=== PATIENT | male | born 1985 | race Caucasian/White ===

== ENCOUNTER 2025-03-07 13:28 | Emergency (ER) | payer OTHER, SELFPAY ==
--- OUTSIDE RECORDS SUMMARY | 2024-02-18 06:15 | XMS_ITS ---
Author Organization [facility] Address [address] [place] [address] Care Team Providers Care Supervisor Cloth Winding Name Role Phone Dr. Linda Simon Primary Care Provider [phone] Darcy Blair Unavailable [phone] Results Component Value Reference Range Notes CBC w/ Diff Reviewed date:02/21/2024 12:00:00 AM Interpretation: Performing Lab: Notes/Report: Basophil Auto 0.4 % Eos Absolute 0.1 x10*3/mcL Eosinophil Auto 0.7 % Hct 42.3 % Hgb 14.6 g/dL Lymph Absolute 2.5 x10*3/mcL Lymph Auto 32.2 % MCH 30.3 pg MCHC 34.6 g/dL MCV 87.6 fL [place] Absolute 0.6 x10*3/mcL [place] Auto 7.5 % MPV 8.1 fL Neutro Absolute 4.6 x10*3/mcL Neutro Auto 59.2 % Platelets 380 K/mcL RBC 4.83 x10*6/mcL RDW 13.0 % WBC 7.8 K/mcL Comprehensive Metabolic Pane l Reviewed date:02/21/2024 12:00:00 AM Interpretation: Performing Lab: Notes/Report: Albumin Lvl 4.6 g/dL Albumin/Globulin Ratio 1.8 Alk Phos 75 unit/L ALT 38 unit/L ANION GAP 9.1 mmol/L AST 20 unit/L Bilirubin Total 0.5 mg/dL BUN 18 mg/dL Calcium Lvl 9.7 mg/dL Chloride Lvl 103 mmol/L CO2 27 mmol/L Creatinine Lvl 1.04 mg/dL eGFR CKD-EPI >90 mL/min/1.73 m2 Glucose Lvl 89 mg/dL Potassium Lvl 4.2 mmol/L Protein Total 7.2 g/dL Sodium Lvl 139 mmol/L Hemoglobin A1c {Glycosylated } Reviewed date:02/21/2024 12:00:00 AM Interpretation: Performing Lab: Notes/Report: eAvg Glucose 108 mg/dL Hemoglobin A1c 5.4 % Lipid Panel {Chol, Trig, HDL , LDL} Reviewed date:02/21/2024 12:00:00 AM Interpretation: Performing Lab: Notes/Report: Chol/HDL 4 Cholesterol Total 167 mg/dL Coronary Risk 25 % HDL 42 mg/dL LDL 101 mg/dL NON HDL CHOLESTEROL 125 mg/dL Triglycerides 120 mg/dL T4 Free Reviewed date:02/21/2024 12:00:00 AM Interpretation: Performing Lab: Notes/Report: T4 Free 1.08 ng/dL Thyroid Stimulating Hormone Reviewed date:02/21/2024 12:00:00 AM Interpretation: Performing Lab: Notes/Report: TSH 2.70 mcIU/mL Vitamin B12 Reviewed date:02/21/2024 12:00:00 AM Interpretation: Performing Lab: Notes/Report: Vitamin B12 Lvl 504 pg/mL Vitamin D 25 Hydroxy Reviewed date:02/21/2024 12:00:00 AM Interpretation: Performing Lab: Notes/Report: Vitamin D 25 OH 40 ng/mL REASON FOR VISIT Med Check Vital Signs Temperature 97.6 degrees Fahrenheit 02/18/20 24 Blood pressure systolic 142 mm Hg 02/18/20 24 Blood pressure diastolic 78 mm Hg 024 Heart Rate 72 /min 02/18/2024 Respiratory Rate 18 /min 02/18/2024 Weight 271.61 lbs 02/18/2024 Oximetry 98 % 02/18/2024 Weight-kg 123.20 kg 02/18/2024 Encounters Encounter Location Date Provider Diagnosis [address] [address] 02/18/2024 Darcy Blair Abnormal levels of other serum enzymes R74.8 ; Essential (primary) hypertension I10 ; Anxiety disorder, unspecified F41.9 and Encounter for general adult medical examination without abnormal findings Z00.00 Assessments Encounter Date Diagnosis (ICD Code) Assessment Notes Treatment Notes Treatment Clinical Notes Section Notes 02/18/2024 Abnormal levels of other serum enzymes (ICD-10 - R74.8) 02/18/2024 Essential (primary) hypertension (ICD-10 - I10) 02/18/2024 Anxiety disorder, unspecified (ICD-10 - F41.9) 02/18/2024 Encounter for general adult medical examination without abnormal findings (ICD-10 - Z00.00) Plan Of Treatment Next Appt Details Provider Name:Linda Chowdhury er, 04/13/2025 08:45:00 AM, [address], [place], [address], [phone] Progress Notes * Brooks SOTODOB:1985 ( 39 yo M)Acc No.[id number]:02/18/2024 Patient: Brooks Gasca Provider: Tracy Blair NP :1985 A ge:38 Y S ex:Male Date:02/18/2024 Phone: Address:[address] [facility] Pcp:Dr. Linda Simon Subjective: * Chief Complaints: * M ed Check Objective: * Vitals: B P: 142/78 mm Hg, HR: 72 /min, RR: 18 /min, Temp: 97.6 F, Oxygen sat %: 98 %, Wt: 271.61 lbs, Wt-k.20 kg, BP2: 132/86. Past Vitals:* 08/24/2022 BP: 144/88 mm Hg, HR: 86 /mi n, Oxygen sat %: 96 %, Wt: 267.99 lbs, Wt-k.56 kg * 05/01/2022 BP: 172/98 mm Hg, HR: 81 /mi n, Oxygen sat %: 98 %, Wt: 267.00 lbs, Wt-k.11 kg Assessment: * Assessment: 1. A nxiety disorder, unspecified - F41.9 S pecify :Src Diagnosis Name: Anxiety 2 . E ssential (primary) hypertension - I10 3 . A bnormal levels of other serum enzymes - R74.8 S pecify :Src Diagnosis Name: Elevated liver enzymes 4 . E ncounter for general adult medical examination without abnormal findings - Z00.00 S pecify :Src Diagnosis Name: Encounter for wellness examination Plan: * Labs: * L ab: Thyroid Stimulating Hormone Value Reference Range T SH 2.70 mcIU/mL ?Lab: Lipid Panel {Chol, Trig, HDL, LDL}* Value Reference Range C hol/HDL 4 * C holesterol Total 167 mg/dL * C oronary Risk 25 % * H DL 42 mg/dL * L DL 101 mg/dL * N ON HDL CHOLESTEROL 125 mg/dL * T riglycerides 120 mg/dL * Coronary Risk: _ C oronary Risk Factor - Male D angerous Risk: <7 % H igh Risk: 7-15 % A verage Risk: 15-25 % B elow Average Risk: 25-37 % _ C oronary Risk Factor - Female Dangerous Risk: <12 % H igh Risk: 12-18 % A verage Risk: 18-27 % B elow Average Risk: 27-40 % _ LDL: _ L DL O ptimal: <100 N ear or above optimal: 100-129 B orderline high: 130-159 H igh: 160-189 V jimmy high: >=190 _ C oronary heart disease risk factors should be considered w hen determining LDL goals. Please refer to A TPIII guidelines for further information. _ I f LDL is not calculated, please call the lab to add on the direct LDL m ethodology, if desired. _ T riglycerides: _ T riglyceride Reference Ranges: < 150 mg/dL Normal 1 50 - 199 mg/dL Borderline High 2 00 - 499 mg/dL High > =500 mg/dL Very High _ ?Lab: Hemoglobin A1c {Glycosylated}* Value Reference Range e Avg Glucose 108 mg/dL * H emoglobin A1c 5.4 % * Hemoglobin A1c: _ H emoglobin A1C < 5.7% = Normal 5 .7-6.4% = Increased risk for future diabetes > =6.5% = Diabetes _ eAvg Glucose: _ e AG Reference Range < 117 mg/dL = Normal 1 17-137 mg/dL = Increased Risk For Future Diabetes > 137 mg/dL = Diabetes _ T est Performed by: [facility] [address], [address] [place] [id number] P dada : ?Lab: CBC w/ Diff* Value Reference Range B asophil Auto 0.4 % * E os Absolute 0.1 x10*3/mcL * E osinophil Auto 0.7 % * H ct 42.3 % * H gb 14.6 g/dL * L ymph Absolute 2.5 x10*3/mcL * L ymph Auto 32.2 % * M CH 30.3 pg * M CHC 34.6 g/dL * M CV 87.6 fL * M ector Absolute 0.6 x10*3/mcL * M ector Auto 7.5 % * M PV 8.1 fL * N eutro Absolute 4.6 x10*3/mcL * N eutro Auto 59.2 % * P latelets 380 K/mcL * R BC 4.83 x10*6/mcL * R DW 13.0 % * W BC 7.8 K/mcL ?Lab: Vitamin D 25 Hydroxy* Value Reference Range V itamin D 25 OH 40 ng/mL * Vitamin D 25 OH: _ V itamin D25 Interpretation: D eficient: <= 20 ng/mL I nsufficient: 21-29 ng/mL S ufficient: 30-100 ng/mL U pper Safety Limit: >100 ng/mL _ ?Lab: T4 Free* Value Reference Range T 4 Free 1.08 ng/dL ?Lab: Vitamin B12* Value Reference Range V itamin B12 Lvl 504 pg/mL * Vitamin B12 Lvl: _ V itamin B12 Interpretation: N ormal Range: 180-914 pg/mL I ndeterminate: 140-180 pg/mL D eficient: <140 pg/mL _ ?Lab: Comprehensive Metabolic Panel* Value Reference Range A lbumin Lvl 4.6 g/dL * A lbumin/Globulin Ratio 1.8 * A lk Phos 75 unit/L * A LT 38 unit/L * A NION GAP 9.1 mmol/L * A ST 20 unit/L * B ilirubin Total 0.5 mg/dL * B UN 18 mg/dL * C alcium Lvl 9.7 mg/dL * C hloride Lvl 103 mmol/L * C O2 27 mmol/L * C reatinine Lvl 1.04 mg/dL * e GFR CKD-EPI >90 mL/min/1.73 m2 * G lucose Lvl 89 mg/dL * P otassium Lvl 4.2 mmol/L * P rotein Total 7.2 g/dL * S odium Lvl 139 mmol/L * eGFR CKD-EPI: _ T he CKD-EPI equation is validated in individuals 18 years of age and older. It i s less accurate in patients with extremes of muscle mass, restriction of d ietary protein, ingestion of creatine, extra-renal metabolism of creatinine, or t reatment with medications that affect renal tubular creatinine secretion. _ G FR Categories in Chronic Kidney Disease (CKD) _ G FR GFR (mL/min/1.73 C ategory: square meters): Interpretation: _ G 1 90 or greater Normal or high* G 2 60-89 Mild decrease* G 3a 45-59 Mild to moderate decrease G 3b 30-44 Moderate to severe decrease G 4 15-29 Severe decrease G 5 14 or less Kidney failure _ _ * In the absence of evidence of kidney damage, neither GFR c ategory G1 nor G2 fulfill the criteria for CKD (Kidney Int Suppl 2013;3:1-150) _ Glucose Lvl: _ A DA risk stratification for diabetes < 100 mg/dL = Normal 1 00-125 mg/dL = Increased risk for future diabetes > =126 mg/dL = Diabetes, if on more than one testing occasion _ * Electronic signature of Carlos Blair on 03/07/2025 at 02:20 PM CDT Sign off status: Pending * Provider: Tracy Blair NP Date: 0 02/18/2024 Generated for Mckayla bruce/Carrie/Dina on: 1 02:20 PM CDT
--- OUTSIDE RECORDS SUMMARY | 2024-05-03 04:00 | XMS_ITS ---
Author Organization [facility] Address [address] [place] [id number] Care Team Providers Care Data Processing Mechanic Name Role Phone Dr. Linda Simon Primary Care Provider [phone] Migration, Provider Unavailable Unavailable REASON FOR VISIT EMR-Tahir Encounters Encounter Location Date Provider Diagnosis [facility] [address] [place] [address] 05/03/2024 Provider Migration Plan Of Treatment Medication Medication Name Sig Start Date Stop Date Notes Vitamin D2 50 MCG (1999) Tablet Oral; Duration: 0 08/25/2022 02/17/2024 ,discontinuere ason:D iscontinued Losartan Potassium-HCTZ 100-25 MG Tablet 1 Oral every day; Duration: 10/01/2023 02/17/2024 ,discontinuereason:D iscontinued Metoprolol Succinate ER 50 MG Tablet Extended Release 24 Hour 1 Oral every day; Duration: 08/30/2023 09/28/2023 ,discontinuereason:R efilled Metoprolol Succinate ER 25 MG Tablet Extended Release 24 Hour 1 Oral every day; Duration: 02/21/2021 04/11/2021 ,discontinuereason:R x Change Sertraline HCl 50 MG Tablet 1 Oral every day; Duration: 07/30/2023 10/27/2023 ,discontinuereason:R efilled Lisinopril-hydroCHLOROth iazide 20-25 MG Tablet 1 Oral every day; Duration: 02/20/2022 04/30/2022 ,discontinuereason:D iscontinued Next Appt Details Provider Name:Linda Chowdhury er, 04/13/2025 08:45:00 AM, [address] [employer] [facility], [place], [address], [phone] Progress Notes * Brooks SOTODOB:1985 ( 39 yo M)Acc No.[id number]:05/03/2024 Patient: Brooks OLIVA :1985 A ge:39 Y S ex:Male Phone: Address:[address] [place] [address], [phone] * Refills Stop Losartan Potassium-HCTZ Tablet, 100-25 MG, Oral, 30, 1, every day, 30 Stop Sertraline HCl Tablet, 50 MG, Oral, 90, 1, every day, 90 Stop Metoprolol Succinate ER Tablet Extended Release 24 Hour, 50 MG, Oral, 90, 1, every day, 90 Stop Losartan Potassium-HCTZ Tablet, 100-25 MG, Oral, 30, 1, every day, 30 Stop Sertraline HCl Tablet, 50 MG, Oral, 30, 1, every day, 30 Stop Losartan Potassium-HCTZ Tablet, 100-25 MG, Oral, 30, 1, every day, 30 Stop Losartan Potassium-HCTZ Tablet, 100-25 MG, Oral, 30, 1, every day, 30 Stop Sertraline HCl Tablet, 50 MG, Oral, 90, 1, every day, 90 Stop Sertraline HCl Tablet, 50 MG, Oral, 90, 1, every day, 90 Stop Metoprolol Succinate ER Tablet Extended Release 24 Hour, 50 MG, Oral, 30, 1, every day, 30 Stop Lisinopril-hydroCHLOROthiazide Tablet, 20-25 MG, Oral, 90, 1, every day, 90 Stop Losartan Potassium-HCTZ Tablet, 100-25 MG, Oral, 90, 1, every day, 90 Stop Losartan Potassium-HCTZ Tablet, 100-25 MG, Oral, 30, 1, every day, 30 Stop Metoprolol Succinate ER Tablet Extended Release 24 Hour, 50 MG, Oral, 30, 1, every day, 30 Stop Lisinopril-hydroCHLOROthiazide Tablet, 20-25 MG, Oral, 30, 1, every day, 30 Stop Lisinopril-hydroCHLOROthiazide Tablet, 20-25 MG, Oral, 90, 1, every day, 90 Stop Losartan Potassium-HCTZ Tablet, 100-25 MG, Oral, 90, 1, every day, 90 Stop Sertraline HCl Tablet, 50 MG, Oral, 90, 1, every day, 90 Stop Sertraline HCl Tablet, 50 MG, Oral, 90, 1, every day, 90 Stop Sertraline HCl Tablet, 50 MG, Oral, 90, 1, every day, 90 Stop Metoprolol Succinate ER Tablet Extended Release 24 Hour, 50 MG, Oral, 90, 1, every day, 90 Stop Lisinopril-hydroCHLOROthiazide Tablet, 20-25 MG, Oral, 90, 1, every day, 90 Stop Sertraline HCl Tablet, 50 MG, Oral, 30, 1, every day, 30 Stop Losartan Potassium-HCTZ Tablet, 100-25 MG, Oral, 30, 1, every day, 30 Stop Losartan Potassium-HCTZ Tablet, 100-25 MG, Oral, 90, 1, every day, 90 Stop Metoprolol Succinate ER Tablet Extended Release 24 Hour, 50 MG, Oral, 90, 1, every day, 90 Stop Losartan Potassium-HCTZ Tablet, 100-25 MG, Oral, 30, 1, every day, 30 Stop Sertraline HCl Tablet, 50 MG, Oral, 30, 1, every day, 30 Stop Sertraline HCl Tablet, 50 MG, Oral, 90, 1, every day, 90 Stop Metoprolol Succinate ER Tablet Extended Release 24 Hour, 50 MG, Oral, 90, 1, every day, 90 Stop Metoprolol Succinate ER Tablet Extended Release 24 Hour, 50 MG, Oral, 30, 1, every day, 30 Stop Sertraline HCl Tablet, 50 MG, Oral, 90, 1, every day, 90 Stop Vitamin D2 Tablet, 50 MCG (2000 UT), Oral, 0 Stop Metoprolol Succinate ER Tablet Extended Release 24 Hour, 50 MG, Oral, 30, 1, every day, 30 Stop Lisinopril-hydroCHLOROthiazide Tablet, 20-25 MG, Oral, 90, 1, every day, 90 Stop Lisinopril-hydroCHLOROthiazide Tablet, 20-25 MG, Oral, 30, 1, every day, 30 Stop Losartan Potassium-HCTZ Tablet, 100-25 MG, Oral, 30, 1, every day, 30 Stop Losartan Potassium-HCTZ Tablet, 100-25 MG, Oral, 30, 1, every day, 30 Stop Losartan Potassium-HCTZ Tablet, 100-25 MG, Oral, 90, 1, every day, 90 Stop Metoprolol Succinate ER Tablet Extended Release 24 Hour, 25 MG, Oral, 30, 1, every day, 30 Stop Metoprolol Succinate ER Tablet Extended Release 24 Hour, 50 MG, Oral, 90, 1, every day, 90 Stop Lisinopril-hydroCHLOROthiazide Tablet, 20-25 MG, Oral, 30, 1, every day, 30 Stop Metoprolol Succinate ER Tablet Extended Release 24 Hour, 25 MG, Oral, 90, 1, every day, 90 Stop Metoprolol Succinate ER Tablet Extended Release 24 Hour, 50 MG, Oral, 90, 1, every day, 90 Subjective: * Chief Complaints: * E MR-Tahir Objective: Past Vitals:* 02/18/2024 BP: 142/78 mm Hg, HR: 72 /mi n, Oxygen sat %: 98 %, Wt: 271.61 lbs, Wt-k.20 kg * 08/24/2022 BP: 144/88 mm Hg, HR: 86 /mi n, Oxygen sat %: 96 %, Wt: 267.99 lbs, Wt-k.56 kg * * Date:
--- OUTSIDE RECORDS SUMMARY | 2024-05-04 04:00 | XMS_ITS ---
Author Organization [facility] Address [address] [place] [address] Care Team Providers Care Instrument Mechanics Supervisor Name Role Phone Dr. Linda Simon Primary Care Provider [phone] Migration, Provider Unavailable Unavailable Allergies Allergen (clinical drug ingredient) Drug/Non Drug Allergy documented on EMR Reaction Allergy Type Onset Date Status amoxicillin / clavulanate Augmentin Unknown Drug Allergy 2021 Active lisinopril Lisinopril Cough Drug Allergy 08/24/2022 Acti ve REASON FOR VISIT EMR-Tahir Medications Medication SIG (Take, Route, Frequency, Duration) Notes Start Date End Date Status hydrOXYzine HCl 25 MG Tablet 1-2 Oral three times a day; Duration: 0 2021 Active Losartan Potassium-HCTZ 100-25 MG Tablet 1 Oral every day; Duration: 02/18/2024 02/11/2025 Active Triamcinolone Acetonide 0.1 % Cream 1 External three times a day; Duration: 0 2021 Active Sertraline HCl 50 MG Tablet 1 Oral every day; Duration: 02/18/2024 02/11/2025 Active cloNIDine HCl 0.1 MG Tablet 1 Oral every day; Duration: 0 2021 Active Metoprolol Succinate ER 50 MG Tablet Extended Release 24 Hour 1 Oral every day; Duration: 02/18/2024 02/11/2025 Active Encounters Encounter Location Date Provider Diagnosis [facility] [address] [place] [address] 05/04/2024 Provider Migration Plan Of Treatment Next Appt Details Provider Name:Linda cole, 04/13/2025 08:45:00 AM, [address] [place] [address], [place], [address], [phone] Progress Notes * Brooks SOTODOB:1985 ( 39 yo M)Acc No.[id number]:05/04/2024 Patient: Brooks OLIVA :1985 A ge:39 Y S ex:Male Phone: Address:[address] [place] [address], [phone] Subjective: * Chief Complaints: * E MR-Tahir * Family History: M other: Diabetes, H ypertension, P arkinson's disease. G randfather: Maternal Grandfather: Diabetes. G randmother: Maternal Grandmother: Diabetes, L warren Cancer. B rother: Hypertension, L eukemia. * Medications: T akingLosartan Potassium-HCTZ 100-25 MG Tablet 1 Oral every day , stop date 02/11/2025Metoprolol Succinate ER 50 MG Tablet Extended Release 24 Hour 1 Oral every day , stop date 02/11/2025Sertraline HCl 50 MG Tablet 1 Oral every day , stop date 02/11/2025loNIDine HCl 0.1 MG Tablet 1 Oral every day Triamcinolone Acetonide 0.1 % Cream 1 External three times a day hydrOXYzine HCl 25 MG Tablet 1-2 Oral three times a day Taking Losartan Potassium-HCTZ 100-25 MG Tablet 1 Oral every day , stop date 02/11/2025Taking Metoprolol Succinate ER 50 MG Tablet Extended Release 24 Hour 1 Oral every day , stop date 02/11/2025Taking Sertraline HCl 50 MG Tablet 1 Oral every day , stop date 02/11/2025Taking cloNIDine HCl 0.1 MG Tablet 1 Oral every day Taking Triamcinolone Acetonide 0.1 % Cream 1 External three times a day Taking hydrOXYzine HCl 25 MG Tablet 1-2 Oral three times a day * Allergies: L isinopril: Cough - Allergy - Onset Date 08/24/2022ugmentin: Allergy - Onset Date 2021 Objective: Past Vitals:* 02/18/2024 BP: 142/78 mm Hg, HR: 72 /mi n, Oxygen sat %: 98 %, Wt: 271.61 lbs, Wt-k.20 kg * 08/24/2022 BP: 144/88 mm Hg, HR: 86 /mi n, Oxygen sat %: 96 %, Wt: 267.99 lbs, Wt-k.56 kg * * Date:
--- NOTE | ~2025-03-07 | CT_ITS ---
EXAMINATION: CT elbow RT wo con COMPARISON: None HISTORY: Pulling injury, Rt. elbow pain x1 day TECHNIQUE: Axial images were obtained without IV contrast. Sagittal, coronal reconstruction images were obtained from the axial views. CT scan performed using dose optimization techniques including the following automated exposure control; adjustment of mA and/or kV; use of iterative reconstruction technique. Automatic exposure control was used to reduce radiation dose. Permanent radiation dose record is archived to PACS. FINDINGS: No fracture or dislocation. Minimal degenerative changes. There is a small joint effusion noted with edema surrounding some of the ligamentous attachments but no gross intramuscular hemorrhage identified. Minimal posterior subcutaneous soft tissue swelling is noted. IMPRESSION: Underlying ligamentous injury suspected. Outpatient contrast- enhanced MRI recommended Reviewed, dictated and finalized at location P. IMPRESSION: Underlying ligamentous injury suspected. Outpatient contrast-enhanc ed MRI recommended
[2025-03-07 13:28] VITALS: BP 144/92; PULSE 76; RESP 16; TEMP 36.7; O2SAT 98
--- NOTE | 2025-03-07 13:36 | ED_ITS ---
HPI - Extremity Problem General Chief complaint: Extremity Injury, Upper Stated complaint: right arm injury; elbow pain Time Seen by Provider: 03/07/25 13:35 Source: patient Mode of arrival: ambulatory Limitations: no limitations History of Present Illness HPI Narrative: 39 year old male presents to the Emergency Department complaining of right elbow injury /pain. Patient was seen at [facility] in [place] and advised to go to the Emergency Department. Patient states he was pulling on something stuck in combine last night and felt crunch in right elbow and heard what sounded like a bag of chips being squashed. States pain to elbow, especially with pronation /suppination. Also some pain to posterior aspect of elbow. No numbness or tingling. MD Complaint: extremity pain Onset (ago): hour(s) (last night) Pain Consistency: constant Location: right and upper extremity (elbow) Radiation: none Relieving factors: nothing Exacerbating factors: range of motion Associated symptoms: denies other symptoms Review of Systems Review of Systems: All systems reviewed & are unremarkable except as noted in HPI and below Constitutional: Constitutional: Reports as per HPI, Denies chills and Denies fever(s) Eyes: Eyes: Reports as per HPI ENT: Reports system reviewed and no additional complaints, except as documented Cardiovascular: Cardiovascular: Reports as per HPI Respiratory: Respiratory: Reports as per HPI Gastrointestinal: Gastrointestinal: Reports as per HPI Genitourinary: Genitourinary: Reports no additional male genitourinary complaints Musculoskeletal: Musculoskeletal: Reports no additional musculoskeletal complaints, Reports arthralgias and Reports joint swelling Integumentary/Breasts: Skin/Breast: Reports system reviewed and no additional complaints, except as docu Neurologic: Reports system reviewed and no additional complaints, except as documented Psychiatric: Psychiatric: Reports no additional psychiatric complaints Endocrine: Endocrine: Reports no additional endocrine complaints Hematologic/Lymphatic: Hematologic/Lymphatic: Reports no additional hematologic/lymphatic complaints Allergic/Immunologic: Allergic/Immunologic: Reports no additional allergic/immunologic complaints Exam Const: General: healthy appearing, no acute distress and alert Nutritional Appearance: well nourished Orientation/consciousness: patient oriented x3 Limitations: no limitations HENMT: Head: normal to inspection Ears: external ears normal Face/Nose/Sinus: Normal external nose present Face and sinus: normal facial exam Mouth: Yes Normal oral and palatal mucosa present Teeth and gingiva: dentition normal Throat: posterior oropharynx normal Eyes: Pupils: Equal, round and reactive pupils present EOM: EOMs intact bilaterally Direct Ophthalmoscopy: no photophobia Neck: Neck: normal visual inspection Chest: Chest palpation & inspection: normal inspection of the chest Resp: Effort & Inspection: normal respiratory effort Cardio: Rate: regular rate GI: Inspection: non-distended GI Palp: Yes Soft to palpation : General: Yes bladder normal to palpation Skin: General skin exam: normal color Rashes: no rashes Neuro: General: patient oriented x3 Speech: normal speech Gait exam (Ne uro): Normal gait present Other: grossly normal Extrem: General: normal to inspection Other: tender to palpation posterior elbow and proximal radial head, with tenderness with pronation /suppination Psych: Mental Status: mental status grossly normal Course Course Emergency Course: 39 y/o male presents to the ED from for evaluation R elbow injury. Patient was pulling last night and heard crunching sound to elbow. Pain with pronation /suppination. PE: tender posterior R elbow and prox radial head, distal NV intact CT R Elbow: no fx or dislocation, mild degenerative changes, small joint effusion, swelling at ligamentous insertion sites suspicious for possible ligamentous injury. Tx: splint, sling Instructions Vital Signs Vital signs: Vital Signs Temperature 36.7 C 03/07/25 13:28 Pulse Rate 76 03/07/25 13:28 Respiratory Rate 16 03/07/25 13:28 Blood Pressure 144/92 H 03/07/25 13:28 Pulse Oximetry 98 03/07/25 13:28 Oxygen Delivery Room Air 03/07/25 13:28 Temperature 36.7 C 03/07/25 13:28 Pulse Rate 76 03/07/25 13:28 Respiratory Rate 16 03/07/25 13:28 Blood Pressure 144/92 H 03/07/25 13:28 Pulse Oximetry 98 03/07/25 13:28 Oxygen Delivery Room Air 03/07/25 13:28 Discharge Plan Discharge Clinical Impression: Injury of elbow, right, Disorder of ligament of right elbow Patient Disposition: Home Condition: Stable Instructions: Elbow Sprain (ED), Elbow Strain (ED) Additional Instructions: Splint / Sling right elbow Ice and Elevate for swelling Tylenol, Ibuprofen and Aleve as needed Follow up Dr. Mejia (Orthopedics) - call for appointment Patient Language: Swedish Follow-up/Referrals: Linda Simon MD [Primary Care Provider, Family Practice] Kodi Mejia MD [Physician, Orthopedics] Time of Disposition: 14:35
--- OUTSIDE RECORDS SUMMARY | 2025-03-07 14:20 | XMS_ITS | Encounter Summary ---
Author Organization [facility] Address [facility] [place] [address] Care Team Providers Care Hall Porter Name Role Phone Darcy Blair- Primary Care Provider Jaskaran Barger MD Unavailable [phone] Encounter Details Date Type Department Care Team (Late st Contact Info) Description 03/16/2020 Abstract [facility] at [facility], [facility] [address] [place] [address] Reymundo Raman MA Social History Tobacco Use Types Packs/Day Years Used Date Smoking Tobacco: Never Sex and Gender Information Value Date Recorded Sex Assigned at Not on file 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 Gender Identity Not on file Sexual Orientation Not on file documented as of this encounter Plan of Treatment Not on file documented as of this encounter Procedures Procedure Name Priority Date/Time Associated Diagnosis Comments ALDOSTERONE Routine 05/05/2021 CBC (OUTSIDE LAB) Routine 10/21/2019 COMPREHENSIVE METABOLIC PANEL Routine 10/21/2019 documented in this encounter Results * ALDOSTERONE (05/05/2021) ALDOSTERONE S/P/B 1 RENIN ACTIVITY 5.82 0.25 - 5.82 05/05/2021 [facility] Abstract LABORATORY Final Result * (ABNORMAL) COMPREHENSIVE METABOLIC PANEL (10/21/2019) SODIUM S/P/B 136 POTASSIUM S/P/B 3.7 CO2 27 CHLORIDE S/P/B 100 GLUCOSE 101 mg/dL CALCIUM S/P/B 9.3 BUN 17 CREATININE S/P/B 1.1 0.7 - 1.3 EGFR AFR. AMER. 98(A) <=90 EGFR NON-AFR. AMER. 81 <=90 ALKALINE PHOSPHATASE S/P/B 89 ALT 67 AST 23 BILIRUBIN TOTAL S/P/B 0.3 ALBUMIN S/P/B 4.2 3.5 - 5.0 TOTAL PROTEIN S/P/B 7.9 10/21/2019 [facility] Abstract LABORATORY Final Result * CBC (OUTSIDE LAB) (10/21/2019) WBC 13.7 HGB 15.1 HCT 44.8 PLT 409 10/21/2019 [facility] Abstract LAB-OUTSIDE/ABSTRACTED Edite d Result - Final documented in this encounter Visit Diagnoses Not on filedocumented in this encounter Care Teams Hall Porter Relationship Specialty Start Date End Date Darcy Blair ANP- [address] [place] [id number] PCP - General FAMILY PRACTICE 12/08/19 Jaskaran Barger MD [address] [address] Consulting Physician CARDIOVASCULAR DISEASE 12/08/19 documented as of this encounter
--- OUTSIDE RECORDS SUMMARY | 2025-03-07 14:20 | XMS_ITS | Patient Health Record ---
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 Linda Simon Primary Care Provider [phone] Migration, Provider Unavailable Unavailable Reason For Referral No Information Medications Medication SIG (Take, Route, Frequency, Duration) Notes Start Date End Date Status hydrOXYzine HCl 25 MG Tablet 1-2 Oral three times a day; Duration: 0 2021 Active Triamcinolone Acetonide 0.1 % Cream 1 External three times a day; Duration: 0 2021 Active Sertraline HCl 50 MG Tablet 1 Oral every day; Duration: 90 Active Metoprolol Succinate ER 50 MG Tablet Extended Release 24 Hour 1 tablet Orally daily; Duration: 90 days Pt needs apt for any further fill Active Losartan Potassium-HCTZ 100-25 MG Tablet 1 tablet Orally daily; Duration: 90 days Pt needs and apt for any further fills Active cloNIDine HCl 0.1 MG Tablet 1 Oral every day; Duration: 0 2021 Active Problems Problem Type SNOMED Code ICD Code Onset Dates Problem Status W/U Status Risk Notes Problem Laboratory test result abnormal (387245572) Abnormal levels of other serum enzymes (R74.8) 3 Active confirmed Problem Benign essential hypertension (8147510) Essential hypertension, benign (401.1) 9 Inactive confirmed Problem Essential hypertension (01425876) Essential (primary) hypertension (I10) 1 Active confirmed Problem Anxiety disorder (602626005) Anxiety disorder, unspecified (F41.9) 1 Active confirmed Problem Hemangioma (187117714) Hemangioma of other sites (D18.09) 1 Active confirmed Problem Tension headache (493054817) Tension headache (307.81) 9 Active confirmed Problem Adult health examination (551639188) Encounter for general adult medical examination without abnormal findings (Z00.00) 4 Active confirmed Encounters Encounter Location Date Provider Diagnosis [address] [address] 05/03/2024 Provider Migration [address] [address] 05/04/2024 Provider Migration [address] [address] 02/14/2025 Dr. Linda Simon Plan Of Treatment Next Appt Details Provider Name:Linda Chowdhury , 04/13/2025 08:45:00 AM, [address] [place] [address], [id number], [id number] Insurance Providers Payer Name Payer Address Payer Phone Subscriber Number Group Number Insured Name Patient Relationship to Insured Coverage Start Date Coverage End Date [employer] [address] [place] [address] [id number] Brooks Soto Self - patient is the insured 1
--- OUTSIDE RECORDS SUMMARY | 2025-03-07 14:20 | XMS_ITS | Clinical Summary ---
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 0 Active sertraline 50 MG tablet Take 50 mg by mouth daily. 0 Active metoprolol succinate ER 200 MG 24 hr tablet Take 50 mg by mouth daily. 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 Gender Identity Not on file Sexual Orientation Not on file Last Filed Vital Signs Vital Sign Reading Time Taken Comments Blood Pressure 140/58 05/05/2021 2:57 PM 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 INSTRUCTOR Pulse 88 05/05/2021 2:56 PM 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 INSTRUCTOR Temperature - - Respiratory Rate 16 05/05/2021 2:56 PM 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 INSTRUCTOR Oxygen Saturation 97% 05/05/2021 2:56 PM 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 INSTRUCTOR Inhaled Oxygen Concentration - - Weight 117.7 kg (259 lb 6.4 oz) 05/05/2021 2:56 PM 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 INSTRUCTOR Height 179.1 cm (5' 10.5) 05/05/2021 2:56 PM CS T Body Mass Index 36.69 05/05/2021 2:56 PM 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 INSTRUCTOR Plan of Treatment Health Maintenance Due Date Last Done Comments Annual Physical 1987 Hepatitis C 2002 DTaP, Tdap and Td Vaccines ( 1 - Tdap) 2003 Hepatitis B Vaccines (1 of 3 - 19+ 3-dose series) 2003 HPV Vaccines (1 - 3-dose SCD M series) 2011 COVID-19 Vaccine (1 - 2023-2 5 season) 2025 Meningococcal B Vaccine Aged Out No l onger eligible based on patient's age to complete this topic Meningococcal Vaccine Aged Out No paulette dane eligible based on patient's age to complete this topic Pneumococcal Vaccine: Pediat rics (0 to 5 Years) and At-Risk Patients (6 to 49 Years) Aged Out No longer eligible b ased on patient's age to complete this topic RSV Immunizations Under 20 Months Aged Out No longer eligible based on patient's age to complete this topic Insurance Vow To Be [place]ic [facility] Care Teams Auto Slip Cover Installer Relationship Specialty Start Date End Date Darcy Blair [facility] [address] [place] [address] PCP - General FAMILY PRACTICE 12/08/19 Jaskaran Barger MD [address] [address] Consulting Physician CARDIOVASCULAR DISEASE 12/08/19
--- NOTE | 2025-03-07 14:40 | PC.NURSE ---
Long arm posterior splint applied to right arm.
== END 2025-03-07 14:46 | disposition home or self-care (01) ==
PROVIDERS: Emergency Provider Emergency Medicine; PCP Family Medicine
DX: S59.901A Unspecified injury of right elbow, initial encounter (principal); M24.221 Disorder of ligament, right elbow; X50.0XXA Overexertion from strenuous movement or load, initial encounter
CPT/HCPCS: 29105; 73200; 99284; A4565

== ENCOUNTER 2025-03-25 08:38 | Outpatient (RCR) | payer OTHER, SELFPAY ==
--- NOTE | 2025-03-25 09:42 | OPREHPOC ---
Outpatient Therapy Plan of Care This is a Multidisciplinary Plan of Care that may contain components documented by all disciplines (PT, OT, and ST.) PT Problem 1 PT Problem #1 Knowledge Deficit PT Goal 1 Goal / Goal Update independent and compliant with HEP Target Visit 3 PT Problem 2 PT Problem #2 Pain PT Goal 1 Goal / Goal Update no more than 2/10 pain at worst in the R elbow in the last week. Target Visit 6 PT Problem 3 PT Problem #3 Impaired Range of Motion PT Goal 1 Goal / Goal Update 5-130 degrees or better active R elbow rom Target Visit 6 PT Problem 4 PT Problem #4 Impaired Strength PT Goal 1 Goal / Goal Update 4+/5 or better R elbow flex Target Visit 6 PT Problem 5 PT Problem #5 Impaired Functional Mobility PT Goal 1 Goal / Goal Update patient to be able to lift 30lbs or more with the R UE only in row fashion to improve functional performance quick dash to display 20% or less functional deficits Target Visit 6
--- NOTE | 2025-03-25 09:42 | PTOPEVAL1 ---
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 he reports he was pulling on something and felt a tearing/popping feeling in the arm. he report the elbow instantly felt warm. he reports he did not have any bruising to the elbow or biceps area. he reports he had CT in ER here, and had an MRI in [place]. he reports he was told by the ortho that he does have some tearing, but they are on the fence of doing surgery at this time. he reports he was told to come to PT and try and strengthen the arm. Reported Pain Level Pain Score 0: Self Report Assessment PT Clinical Summary mr. landeros is a 39 yo man who presents to skilled PT services for evaluation and treatment of R biceps injury. he presents today with decreased R elbow active rom, R biceps and forearm weakness, and deficits in functional lifting. his signs and symptoms are consistent with a distal biceps injury of the R UE. continued skilled PT is indicated to improve his objective/functional performance and return to his prior level functional activities and quality of life. Plan of Care Interventions Electrical Stimulation,Hot Pack/Cold Pack,Manual Therapy,Neuro Re-education,Patient/Caregiver Education,Therapeutic Activities,Therapeutic Exercise,Ultrasound PT Services Indicated Yes Treatment Frequency and 2x weekly for 6 visits Duration These treatments will address the objective and functional deficits as defined above. The patient will be advanced safely and appropriately in order for the patient to progress towards his/her prior level of function. Additional exercises will be introduced and as well as a comprehensive home exercise program upon discharge, if needed, ?to ensure carryover of functional gains achieved in the clinic. This treatment plan has been reviewed and agreement upon by the patient.
--- NOTE | 2025-04-10 09:00 | OPREHPOC ---
Outpatient Therapy Plan of Care This is a Multidisciplinary Plan of Care that may contain components documented by all disciplines (PT, OT, and ST.) PT Problem 1 PT Problem #1 Knowledge Deficit PT Goal 1 Goal / Goal Update independent and compliant with HEP Target Visit 3 Progress Met PT Problem 2 PT Problem #2 Pain PT Goal 1 Goal / Goal Update no more than 2/10 pain at worst in the R elbow in the last week. Target Visit 12 Progress Not Met PT Problem 3 PT Problem #3 Impaired Range of Motion PT Goal 1 Goal / Goal Update 5-130 degrees or better active R elbow rom. met for flexion Target Visit 12 Progress Partially Met PT Problem 4 PT Problem #4 Impaired Strength PT Goal 1 Goal / Goal Update 4+/5 or better R elbow flex Target Visit 6 Progress Met PT Goal 2 Goal / Goal Update 5/5 R elbow flex Target Visit 12 PT Problem 5 PT Problem #5 Impaired Functional Mobility PT Goal 1 Goal / Goal Update patient to be able to lift 30lbs or more with the R UE only in row fashion to improve functional performance. able, but with pain quick dash to display 20% or less functional deficits Target Visit 12
--- NOTE | 2025-04-10 09:00 | PTOPREEVAL ---
Assessment and note entered by JT File, PT Evaluation Information Assessment Status Re-evaluation ICD-10 Condition Codes (PT) Pain in right elbow M25.521 Onset 03/06/25 Subjective Information patient reports he is significantly better, but reports he still has pain in the R elbow and would like to continue skilled PT. 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 he report she is also affected by repetitive motion. Reported Pain Level Pain Score 3: Self Report Assessment PT Clinical Summary mr. matute presents to skilled PT for his 6th skilled therapy visit today. he reports a reduction in overall pain and improved functional performance per the quick dash. he displays improved active R elbow flexion and R elbow strength. however, he continues to have pain and difficulty with repetitive activities. continued skilled PT is indicated to further improve his strength, rom, and functional performance to prior levels to improve his quality of life. Plan of Care Interventions Electrical Stimulation,Hot Pack/Cold Pack,Manual Therapy,Neuro Re-education,Patient/Caregiver Education,Therapeutic Activities,Therapeutic Exercise,Ultrasound PT Services Indicated Yes Treatment Frequency and continue skilled PT 2x weekly for 6 more visits ( Duration 12 total) These treatments will address the objective and functional deficits as defined above. The patient will be advanced safely and appropriately in order for the patient to progress towards his/her prior level of function. Additional exercises will be introduced and as well as a comprehensive home exercise program upon discharge, if needed, ?to ensure carryover of functional gains achieved in the clinic. This treatment plan has been reviewed and agreement upon by the patient.
--- NOTE | 2025-04-29 09:06 | OPREHPOC ---
Outpatient Therapy Plan of Care This is a Multidisciplinary Plan of Care that may contain components documented by all disciplines (PT, OT, and ST.) PT Problem 1 PT Problem #1 Knowledge Deficit PT Goal 1 Goal / Goal Update independent and compliant with HEP Target Visit 3 Progress Met PT Problem 2 PT Problem #2 Pain PT Goal 1 Goal / Goal Update no more than 2/10 pain at worst in the R elbow in the last week. Target Visit 12 Progress Not Met PT Problem 3 PT Problem #3 Impaired Range of Motion PT Goal 1 Goal / Goal Update 5-130 degrees or better active R elbow rom. met for flexion Target Visit 12 Progress Partially Met PT Problem 4 PT Problem #4 Impaired Strength PT Goal 1 Goal / Goal Update 4+/5 or better R elbow flex Target Visit 6 Progress Met PT Goal 2 Goal / Goal Update 5/5 R elbow flex Target Visit 12 Progress Not Met PT Problem 5 PT Problem #5 Impaired Functional Mobility PT Goal 1 Goal / Goal Update patient to be able to lift 30lbs or more with the R UE only in row fashion to improve functional performance. met quick dash to display 20% or less functional deficits Target Visit 12 Progress Partially Met
--- NOTE | 2025-04-29 09:06 | PTOPDC ---
Assessment and note entered by JT File, PT Evaluation Information Assessment Status Discharge ICD-10 Condition Codes (PT) Pain in right elbow M25.521 Onset 03/06/25 Subjective Information patient reports he is better today compared to sunday. he reports he has returned to all prior level activities without limiting his use of the R UE. he reports it is still weaker than the L UE, but reports it is better then when he started PT. Reported Pain Level Pain Score 3: Self Report Assessment PT Clinical Summary mr. matute presents to skilled PT for his 12th skilled PT visit. today, he displays continued slight weakness of the R biceps, but improve since his initial evaluation. as of this date, patient will DC skilled PT, and continue with HEP independent at home. Plan of Care PT Services Indicated Yes
== END 2025-04-29 11:50 | disposition home or self-care (01) ==
LOC: CHSPT 08:38
PROVIDERS: Visit Provider Orthopaedic Surgery
DX: S46.211A Strain of muscle, fascia and tendon of other parts of biceps, right arm, initial encounter (principal)
CPT/HCPCS: 97110; 97140; 97161; 97530